=== PATIENT | male | born 1985 | race Caucasian/White ===

== ENCOUNTER 2017-04-03 13:49 | Emergency (ER) | payer BC ==
--- NOTE | 2017-04-03 15:22 | CR ---
Right knee: Four views of the right knee were obtained. Comparison: No previous study. Medial and lateral joint spaces are maintained in height. Very small bony exostosis noted off the medial epicondyle of the distal femur which is felt to be incidental. No joint effusion is seen. No acute fracture or other bony abnormality is seen. Impression: 1. Small bony exostosis as noted above which is incidental. 2. Right knee exam is otherwise unremarkable. Diagnostic code #2
--- NOTE | 2017-04-03 15:22 | CR ---
Right ankle: Four views of the right ankle were obtained. Comparison: No previous study. Ankle mortise is symmetric. No fracture, dislocation or other bony abnormality is seen. Impression: 1. No abnormality is identified on right ankle exam. Diagnostic code #1
--- NOTE | 2017-04-03 15:41 | EDM.PDOC ---
ED HPI GENERAL MEDICAL PROBLEM - General Chief Complaint: Lower Extremity Injury/Pain Stated Complaint: FALL FRIDAY-BOTH KNEES PAINFUL Time Seen by Provider: 04/03/17 14:28 Source of Information: Reports: Patient History Limitations: Reports: No Limitations - History of Present Illness INITIAL COMMENTS - FREE TEXT/NARRATIVE: The patient slipped and fell on the ice on Friday and landed back on his buttock. He hurt both knees and his right ankle. He has some trouble walking on it. He did not hit his head or hurt his neck. He has no back pain. Onset: Sudden Duration: Day(s): (Friday) Location: Reports: Lower Extremity, Left (knee), Lower Extremity, Right (Knee and ankle) Quality: Reports: Sharp Severity: Moderate Improves with: Reports: None Worsens with: Reports: None Context: Reports: Activity (Slipped on the ice) Associated Symptoms: Reports: No Other Symptoms Right Ankle Pain Score (Numeric/FACES): 7 Review of Systems - Review of Systems Review Of Systems: See Below Constitutional: Reports: No Symptoms Eyes: Reports: No Symptoms Ears: Reports: No Symptoms Nose: Reports: No Symptoms Mouth/Throat: Reports: No Symptoms Respiratory: Reports: No Symptoms Cardiovascular: Reports: No Symptoms GI/Abdominal: Reports: No Symptoms Genitourinary: Reports: No Symptoms Musculoskeletal: Reports: Other (Bilateral knee pain and right ankle pain) ED EXAM, GENERAL - Physical Exam Exam: See Below Exam Limited By: No Limitations General Appearance: Alert, No Apparent Distress Ears: Normal External Exam Nose: Normal Inspection Head: Atraumatic, Normocephalic Neck: Normal Inspection Respiratory/Chest: No Respiratory Distress Extremities: Other (Mild pain upon palpation to the left knee with good sensation and pulses distally. Pain upon palpation to the anterior and lateral knee with good sensation and pulses distally. Mild edema and moderate pain upon palpation to the right ankle.) Course - Vital Signs Last Recorded V/S: Last Vital Signs Temp 97.2 F 04/03/17 14:28 Pulse 91 04/03/17 14:28 Resp 18 04/03/17 14:28 BP 112/66 04/03/17 14:28 Pulse Ox 98 04/03/17 14:28 - Orders/Labs/Meds Orders: Active Orders 24 hr Category Date Time Status Durable Medical Equipment for Discharge [DME for Oth 04/03/17 15:35 Ordered Discharge] [COMM] Stat - Re-Assessments/Exams Free Text/Narrative Re-Assessment/Exam: 04/03/17 15:40 I x-rayed his right knee and ankle His x-rays do not show anything acute. Departure - Departure Time of Disposition: 15:45 Disposition: Home, Self-Care 01 Condition: Good Clinical Impression: Fall Qualifiers: Encounter type: initial encounter Qualified Code(s): W19.XXXA - Unspecified fall, initial encounter Sprain of right knee Qualifiers: Encounter type: initial encounter Involved ligament of knee: unspecified ligament Qualified Code(s): S83.91XA - Sprain of unspecified site of right knee , initial encounter Ankle sprain Qualifiers: Encounter type: initial encounter Involved ligament of ankle: unspecified ligament Laterality: right Qualified Code(s): S93.401A - Sprain of unspecified ligament of right ankle, initial encounter - Discharge Information Referrals: PCP,None [Primary Care Provider] - Lior Alejandro MD [Physician] - 1 Week Additional Instructions: Ice the areas that hurt for 15 minutes every other hour while awake for 2 days. Elevate your leg as much as you can for 2 days. Use the crutches and the walking boot as needed. Take tylenol or motrin for pain. Follow up with Dr Alejandro in 1 to 2 weeks. - My Orders Last 24 Hours: My Active Orders 04/03/17 15:35 Durable Medical Equipment for Discharge [DME for Discharge] [COMM] Stat - Assessment/Plan Last 24 Hours: My Active Orders 04/03/17 15:35 Durable Medical Equipment for Discharge [DME for Discharge] [COMM] Stat
== END 2017-04-03 16:10 | disposition home or self-care (01) ==
LOC: JD.ED 13:49
DX: S83.91XA Sprain of unspecified site of right knee, initial encounter (principal); S93.401A Sprain of unspecified ligament of right ankle, initial encounter; W00.0XXA Fall on same level due to ice and snow, initial encounter
CPT/HCPCS: 73564-26-RT; 73564-RT; 73610-26-RT; 73610-RT; 99283